=== PATIENT | female | born 1970 | race Caucasian/White ===

== ENCOUNTER 2024-12-15 22:11 | Emergency (ER) | payer SELFPAY ==
[~2024-12-15] VITALS: Ht 152.4 cm; Wt 120.5 kg
[2024-12-15 23:00] VITALS: TEMP 36.8; O2SAT 99
[2024-12-15 23:54] LABS: BASOPHILS % 0.6 % (0.0-2.0); EOSINOPHILS % 1.7 % (0.0-5.0); HEMATOCRIT. 41.6 % (36.0-48.0); HEMOGLOBIN. 14.2 g/dL (12.0-16.0); LYMPHOCYTES % 26.0 % (20.0-50.0); MEAN PLATELET VOLUME 8.9 fl (7.4-10.4); MONOCYTES % 7.9 % (2.0-8.0); NEUTROPHILS % 63.8 % (40.0-76.0); PLATELET 301 x1000/uL (130-400); RED BLOOD CELL COUNT 4.67 mill/uL (4.2-5.4); RED CELL DISTRIBUTION WIDTH 13.2 % (11.6-14.6)
[2024-12-16 00:09] LABS: CREATININE 0.7 mg/dL (0.6-1.0); UREA NITROGEN BLOOD 11 mg/dL (9-23)
[2024-12-16] MEDS ORDERED: NAPR-1176 MT (02:04)
[2024-12-16 02:18] VITALS: BP 161/85; PULSE 60; RESP 18; O2SAT 100
== END 2024-12-16 02:19 | disposition home or self-care (01) ==
LOC: ER 22:11
DX: R60.0 Localized edema (principal); M79.604 Pain in right leg; I10 Essential (primary) hypertension; I87.1 Compression of vein; Z79.1 Long term (current) use of non-steroidal anti-inflammatories (NSAID)
CPT/HCPCS: 36415; 80048; 85025; 93971; 99284